=== PATIENT | male | born 1945 | race Caucasian/White ===

== ENCOUNTER 2020-07-24 06:37 | Emergency (ER) | payer MEDICARE ==
[~2020-07-24] VITALS: Ht 177.8 cm; Wt 95.6 kg
--- NOTE | 2020-07-24 06:49 | NUR ---
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 CMS intact but patient unable to move shoulder on his own. Denies head injury or LOC. [employer] admin Fentanyl and Zofran. Patient is in NAD. Respirations even and unlabored.
--- NOTE | 2020-07-24 06:51 | NUR ---
Report to DIANE Santana. Patient care transferred.
--- NOTE | 2020-07-24 06:52 | NUR ---
REPORT FROM JOI
--- NOTE | 2020-07-24 07:15 | NUR ---
pt resting, states pain is ok, vss. waiting for xr
[2020-07-24] MEDS ORDERED: HYDROmorphone 1 MG/ML, 1ML INJ IV ONE (07:30)
[2020-07-24] MEDS ORDERED: HYDROmorphone 1 MG/ML, 1ML INJ ONE ×3 (07:31→10:06)
--- NOTE | 2020-07-24 07:35 | NUR ---
MEDICATED FOR PAIN. PAIN 9/10 IN LEFT SHOULDER.
--- NOTE | 2020-07-24 08:54 | NUR ---
PT REPORT FROM DIANE MAI. PT CURRENTLY C/O NAUSEA AND PAIN; AWARE OF POTENTIAL ADMISSION. SPOUSE AT BS.
[2020-07-24] MEDS ORDERED: ONDANSETRON 2MG/ML, 2ML IVPush ONE (09:00)
[2020-07-24] MEDS ORDERED: ONDANSETRON 2MG/ML, 2ML ONE (09:00)
--- NOTE | 2020-07-24 09:03 | NUR ---
TO CT PER JOSHUA
[2020-07-24] MEDS ORDERED: FUROSEMIDE (09:12)
[2020-07-24] MEDS ORDERED: CARVEDILOL (09:12)
[2020-07-24] MEDS ORDERED: PREDNISONE (09:12)
[2020-07-24] MEDS ORDERED: WARFARIN (09:12)
[2020-07-24] MEDS ORDERED: CYCLOSPORINE (09:12)
[2020-07-24] MEDS ORDERED: AMLODIPINE (09:12)
[2020-07-24] MEDS ORDERED: AZATHIOPRINE (09:12)
[2020-07-24] MEDS ORDERED: DOXAZOSIN (09:12)
[2020-07-24] MEDS ORDERED: GLIPIZIDE (09:12)
[2020-07-24] MEDS ORDERED: INSULIN (09:12)
[2020-07-24] MEDS: HYDROmorphone 1 MG/ML, 1ML INJ IVPush PRN ×2 (09:46→10:10)
--- NOTE | 2020-07-24 09:48 | NUR ---
ZOFRAN & DILAUDID 0.5MG GIVEN PER EMAR. PT LT SHOULDER SPLINTED ON PILLOW. ECCHYMOSIS TO LT ANTERIOR SHOULDER, LT ELBOW. SLIGHT ABRASION TO LT ELBOW; CLEANSED W/ SOAP & WATER. SWELLING TO LT ELBOW. UNABLE TO ASSESS LT RADIAL PULSE DUE TO LOCATION OF UNUSED DIALYSIS PORT. PT STATES HE WAS WALKING W/ WALKER THIS AM, TRIPPED, FELL ONTO HARDWOOD FLOOR. PT RT HANDED. PT TAKES CYCLOSPORINE FOR KIDNEY TRANSPLANT (1995). SPOUSE IN ROOM. SIDE RAILS UP X2, CALL LIGHT W/IN REACH.
--- NOTE | 2020-07-24 10:12 | NUR ---
PAIN 8-9/10. ADDITIONAL DILAUDID 0.5MG GIVEN PER EMAR.
--- NOTE | 2020-07-24 11:12 | NUR ---
PT ASKED ABOUT TAKING HIS MORNING MEDS. DR JACOBO CONSULTED; VO TO HOLD PT'S HOME MEDS, FOR NOW.
[2020-07-24 11:35] VITALS: BP 142/79
--- NOTE | 2020-07-24 11:43 | NUR ---
[facility] HERE FOR PT TRANSPORT.
--- NOTE | 2020-07-24 11:43 | NUR ---
REPORT CALLED TO DIANE RASMUSSEN AT [facility].
== END 2020-07-24 11:55 | disposition short-term general hospital (02) ==
LOC: ED 07:24
DX: S42.212A Unspecified displaced fracture of surgical neck of left humerus, initial encounter for closed fracture (principal); S22.42XA Multiple fractures of ribs, left side, initial encounter for closed fracture; I48.91 Unspecified atrial fibrillation; I10 Essential (primary) hypertension; E11.9 Type 2 diabetes mellitus without complications; J44.9 Chronic obstructive pulmonary disease, unspecified; Z94.0 Kidney transplant status; W01.0XXA Fall on same level from slipping, tripping and stumbling without subsequent striking against object, initial encounter; Y93.89 Activity, other specified; Y92.009 Unspecified place in unspecified non-institutional (private) residence as the place of occurrence of the external cause; Y99.8 Other external cause status
CPT/HCPCS: 71250; 73030; 73200; 93005; 96374; 96375; 96376; 99285; J1170; J2405